=== PATIENT | female | born 1975 | race Caucasian/White ===

== ENCOUNTER 2017-06-25 05:40 | Inpatient (IN) | payer OTHER ==
[2017-06-25] MEDS ORDERED: ELECTROLYTE-148 SOLN 1,000 ML IV ONE (06:15)
[2017-06-25 06:30] VITALS: BMI 33.5
[2017-06-25] MEDS ORDERED: ONDANSETRON 4 MG/2 ML VIAL IVPUSH PRN (07:21)
[2017-06-25] MEDS ORDERED: morphine SULFATE/Preservative Free 0.5 MG/ML (1cc Syringe) EP ONE (07:21)
[2017-06-25] MEDS ORDERED: IBUPROFEN 800 MG/8 ML IJ IVPB PRN ×2 (07:22→08:31)
[2017-06-25] MEDS ORDERED: CITRIC ACID/SODIUM CITRATE 30 ML UNIT-DOSE CUP PO ONE (07:28)
[2017-06-25] MEDS ORDERED: ceFAZolin SODIUM 1 GM VIAL ONE (07:30)
[2017-06-25] MEDS ORDERED: ELECTROLYTE-148 SOLN 1,000 ML IV SCH (07:30)
--- NOTE | 2017-06-25 07:34 | HP ---
Past Medical History - Primary Care Physician PCP:: Adan Henderson - Admission Chief Complaint: 39 weeks, previous c/s , for repeat c/s and btl, AMA History of Present Illness: 41 yo f g 5 [id number] edc by sono 07/01/17 39 weeks with 2 previous c/s request of repeat c/s and BTL , risks discussed , rfailure risk and risk of ectopic discussed , s/p amnio History Source: Patient Limitations to Obtaining History: No Limitations - Past Medical History ...: 5 ...Para: 3 ...Term: 3 ...Induced : 1 ...LMP: 09/30/16 ... Weeks Gestation by Dates: 38.5 ...EDC by Dates: 07/07/17 ...EDC by Sono: 07/01/17 - Past Surgical History Past Surgical History: Yes: Hx Myomectomy: No Hx Transabdominal Cerclage: No - Smoking History Smoking history: Never smoked Have you smoked in the past 12 months: No Aproximately how many cigarettes per day: 3 - Alcohol/Substance Use Hx Alcohol Use: No History of Substance Use: reports: None - Social History History of Recent Travel: No Home Medications - Allergies Allergies/Adverse Reactions: Allergies Allergy/AdvReac Type Severity Reaction Status Date / Time No Known Allergies Allergy Verified 06/25/17 06:55 - Home Medications Home Medications: Ambulatory Orders Ferrous Sulfate [Iron] 1 tab PO DAILY 06/25/17 Vit Calc,Iron,Folic [ Vitamins] 1 tab PO DAILY 06/25/17 Review of Systems - Review of Systems Constitutional: reports: No Symptoms Eyes: reports: No Symptoms HENT: reports: No Symptoms Neck: reports: No Symptoms Respiratory: reports: No Symptoms Gastrointestinal: reports: No Symptoms Genitourinary: reports: No Symptoms Breasts: reports: No Symptoms Reported Musculoskeletal: reports: No Symptoms Integumentary: reports: No Symptoms Neurological: reports: No Symptoms Endocrine: reports: No Symptoms Hematology/Lymphatic: reports: No Symptoms Physical Exam - Maternity Vital Signs: Vital Signs Temperature 97.8 F 06/25/17 06:19 Pulse Rate 84 06/25/17 06:19 Respiratory Rate 16 06/25/17 06:19 Blood Pressure 116/65 06/25/17 06:19 O2 Sat by Pulse Oximetry (%) Constitutional: Yes: Well Nourished, No Distress, Calm Eyes: Yes: WNL, Conjunctiva Clear, EOM Intact HENT: Yes: WNL, Atraumatic, Normocephalic Neck: Yes: WNL, Supple, Trachea Midline Cardiovascular: Yes: WNL, Regular Rate and Rhythm Breast(s): Yes: WNL - Abdominal Exam/OB Fundal Height: 40 Number of Fetuses: Single Presentation: Vertex Contractions: No Intensity: Unaware Monitor Mode: External Heart Rate Location: [facility] Category: I Accelerations: Uniform Decelerations: None - Vaginal Exam/OB Vaginal Bleediing: No Speculum Exam: No Dilatation (cm): closed Effacement (%): 0 Amniotic Membrane Status: Intact Presentation: Vertex/Position Station: -3 - Physical Exam Musculoskeletal: Yes: WNL Extremities: Yes: WNL Edema: Yes Edema: LLE: Trace, RLE: Trace Deep Tendon Reflex Grade: Normal +2 Problem List - Problems (1) 39 weeks gestation of Code(s): Z3A.39 - 39 WEEKS GESTATION OF (2) Previous section complicating Code(s): O34.219 - MATERNAL CARE FOR UNSP TYPE SCAR FROM PREVIOUS DEL (3) Advanced maternal age (AMA) in Code(s): OWG4231 - (4) Sterilization Code(s): Z30.2 - ENCOUNTER FOR STERILIZATION Assessment/Plan admit for repeat c/s and BTL, rba discussed
[2017-06-25] MEDS ORDERED: PHENYLEPHRINE HCL 10 MG/1 ML SINGLE DOSE VIAL ONE (07:59)
[2017-06-25] MEDS ORDERED: MIDAZOLAM HCL 2 MG/2 ML SINGLE DOSE VIAL ONE (08:03)
[2017-06-25] MEDS ORDERED: OXYTOCIN 10 UNITS/ML VIAL ONE (08:06)
[2017-06-25] MEDS ORDERED: METHYLERGONOVINE MALEATE 0.2 MG/1 ML AMP IM PRN (08:31)
[2017-06-25] MEDS ORDERED: BENZOCAINE 28 GM HEMORRHOIDAL OINTMENT PR PRN (08:31)
[2017-06-25] MEDS ORDERED: diphenhydrAMINE HCL 25 MG CAPSULE (FP) PO PRN (08:31)
[2017-06-25] MEDS ORDERED: WITCH HAZEL 50% (TUCKS) 40 PAD/JAR PAD TP PRN (08:31)
[2017-06-25] MEDS ORDERED: BENZOCAINE 20% 57 GM BOTTLE TP PRN (08:31)
[2017-06-25] MEDS ORDERED: oxyCODONE HCL 5 MG TABLET PO PRN (08:31)
[2017-06-25] MEDS ORDERED: DEXTROSE 5%-LACTATED RINGERS 1,000 ML IV SCH (08:45)
[2017-06-25] MEDS ORDERED: OXYTOCIN 20 UNITS in 0.9% NS 20 UNIT/1,000 ML INFUS.BAG IV SCH (08:45)
[2017-06-25] MEDS ORDERED: OXYTOCIN 20 UNITS in 0.9% NS 20 UNIT/1,000 ML INFUS.BAG IV ONE (09:30)
[2017-06-25] MEDS ORDERED: CEFAZOLIN 1 GM/D5W 1 GM/50 ML BAG IVPB SCH ×2 (10:00→18:00)
[2017-06-25] MEDS: ENOXAPARIN NA (PORCINE) 40 MG/0.4 ML DISP.SYRIN SQ SCH (12:53)
--- NOTE | 2017-06-25 16:56 | OP ---
DATE OF OPERATION: 06/25/2017 PREOPERATIVE DIAGNOSIS: 39 weeks, previous section, request repeat section and tubal ligation. POSTOPERATIVE DIAGNOSIS: 39 weeks, previous section, request repeat section and tubal ligation. PROCEDURE: Repeat low segment transverse section and bilateral tubal ligation. SURGEON: Stan Henderson M.D. WORKERS COMPENSATION CLAIMS SPECIALIST: Erich Calhoun ANESTHESIA: Spinal. ANESTHESIOLOGIST: Jae Fabian M.D. ESTIMATED BLOOD LOSS: 500 mL. OPERATION: Patient was taken to operating room with adequate epidural anesthesia. Abdomen and perineum were prepped and draped. Pfannenstiel abdominal skin incision was made over the previous incision. Abdominal wall was cut layer by layer until the peritoneum was exposed and incised. Upon entering the abdominal cavity, the lower uterine segment was identified, and uterovesical fold of the peritoneum was established. The bladder was pushed down. Then with the lower blade of the [place] retractor in the pelvis, a low transverse uterine incision was made. The incision extended laterally with bandage scissors. Amniotic sac was entered. Clear fluid. Head delivered. Nasopharynx was suctioned. Cord around the neck x1. A live baby was delivered without any difficulty. Placenta was delivered manually. Uterine cavity was cleared of all remaining tissue. Uterine incision was closed in 2 layers, the 1st layer with 0 Biosyn continuous suture, the 2nd layer with 0 Biosyn imbricating the 1st layer. Bladder flap was closed with 0 Biosyn continuous suture. Both tubes and ovaries were checked and were normal. The right tube was grasped with Brandon clamp. Right tube was doubly tied with 2-0 plain. Portion of tube was removed, and endosalpinx was cauterized. The same procedure repeated for opposite tube. And then all the lap, sponge, and instrument counts were correct. Peritoneum was closed with 0 Biosyn with continuous suture. Muscles were brought together interrupted suture with 0 Biosyn. Fascia was closed with 0 Biosyn continuous sutures. Subcutaneous fat interrupted sutures 0 Biosyn, and the skin was closed with jimbo. The patient tolerated the procedure well and left the OR in good condition. STAN HENDERSON M.D. [id number]
[2017-06-25] MEDS: CEFAZOLIN 1 GM PUSH 1 GM/10 ML DISP.SYRIN IVPUSH SCH (18:12)
[2017-06-26] MEDS: CEFAZOLIN 1 GM PUSH 1 GM/10 ML DISP.SYRIN IVPUSH SCH (01:52)
--- NOTE | 2017-06-26 07:11 | PN ---
Post Progress Note Post Day: 1 Type of Delivery: Repeat C/S Vital Signs: Vital Signs Temperature 97.8 F 06/26/17 06:00 Pulse Rate 68 06/26/17 06:00 Respiratory Rate 18 06/26/17 06:00 Blood Pressure 85/50 06/26/17 06:00 O2 Sat by Pulse Oximetry (%) 99 06/25/17 08:45 Breast Exam: Yes: Soft Uterus: Yes: Fundus Firm Incision: Yes: Dressing dry and intact Abdomen/GI: Yes: Abdomen soft Lochia: Yes: Rubra Lochia, amount: Small Extremities: Yes: Calves non-tender Perineum: Yes: Intact Activity: Ambulating Assessment/Plan ooob reg diet pain control
[2017-06-26 07:54] LABS: BASO % 0.4 % (0-2.0); EOS % 0.5 % (0-4.5); HEMATOCRIT 31.9 % (32.4-45.2); HEMOGLOBIN 10.9 GM/dL (10.7-15.3); MCH 31.2 pg (25.7-33.7); MCHC 34.1 g/dl (32.0-36.0); MEAN CELL VOLUME 91.3 fl (80-96); MEAN PLT VOLUME 7.8 fl (7.5-11.1); MONO % 5.1 % (3.8-10.2); PLATELET COUNT 124 K/MM3 (134-434); RDW 13.6 % (11.6-15.6); WHITE BLOOD COUNT 12.1 K/mm3 (4.0-10.0)
[2017-06-26] MEDS ORDERED: BISACODYL 10 MG SUPP.RECT RC PRN (08:31)
[2017-06-26] MEDS: SIMETHICONE 80 MG TAB.CHEW (FP) PO PRN ×3 (08:42→18:32)
[2017-06-26] MEDS: ACETAMINOPHEN 325 MG TABLET (FP) PO PRN ×2 (08:45→14:47)
[2017-06-26] MEDS: oxyCODONE HCL 5 MG TABLET PO PRN ×3 (08:45→18:32)
[2017-06-26] MEDS: ENOXAPARIN NA (PORCINE) 40 MG/0.4 ML DISP.SYRIN SQ SCH (09:22)
--- NOTE | 2017-06-26 10:26 | PN ---
Progress Note, Physician Chief Complaint: pt day #1 s/p c/s - Current Medication List Current Medications: Active Medications Acetaminophen (Tylenol -) 650 mg PO Q6H PRN PRN Reason: PAIN LEVEL 4 - 6 Last Admin: 06/26/17 08:45 Dose: 650 mg Benzocaine (Americaine 20% [place] -) 1 spray TP PRN PRN PRN Reason: PAIN Benzocaine (Americaine Ointment -) 1 applic IN PRN PRN PRN Reason: PAIN Bisacodyl (Dulcolax Suppository -) 10 mg RC PRN PRN PRN Reason: CONSTIPATION Diphenhydramine HCl (Benadryl Injection -) 25 mg IVPUSH Q4H PRN PRN Reason: Pruritis Last Admin: 06/25/17 10:11 Dose: 25 mg Diphenhydramine HCl (Benadryl -) 25 mg PO Q8H PRN PRN Reason: FOR ITCHING Enoxaparin Sodium (Lovenox -) 40 mg SQ DAILY JENNA Last Admin: 06/26/17 09:22 Dose: 40 mg Parenteral Electrolytes (Plasma-Lyte 148 -) 1,000 mls @ 125 mls/hr IV ASDIR JENNA Dextrose/Lactated Ringer's (D5-Lr -) 1,000 mls @ 125 mls/hr IV ASDIR JENAN Ibuprofen (Caldolor Injection -) 600 mg IVPB Q8H PRN PRN Reason: FEVER Ibuprofen (Motrin -) 600 mg PO Q4H PRN PRN Reason: PAIN Ibuprofen (Caldolor Injection -) 800 mg IVPB Q6H PRN PRN Reason: PAIN Last Admin: 06/26/17 00:17 Dose: 800 mg Methylergonovine Maleate (Methergine Injection -) 0.2 mg IM Q4H PRN PRN Reason: EXCESSIVE BLEEDING Ondansetron HCl (Zofran Injection) 4 mg IVPUSH Q4H PRN PRN Reason: NAUSEA Oxycodone HCl (Roxicodone -) 5 mg PO Q4H PRN PRN Reason: PAIN LEVEL 1-5 Last Admin: 06/26/17 08:45 Dose: 5 mg Oxycodone HCl (Roxicodone -) 10 mg PO Q4H PRN PRN Reason: PAIN LEVEL 6-10 Senna/Docusate Sodium (Pericolace -) 2 tablet PO HS PRN PRN Reason: CONSTIPATION Simethicone (Mylicon -) 80 mg PO Q4H PRN PRN Reason: GAS Last Admin: 06/26/17 08:42 Dose: 80 mg Witch Marizol/Glycerin (Tucks Pads -) 1 pad TP PRN PRN PRN Reason: PAIN - Objective Vital Signs: Vital Signs Temperature 98.4 F 06/26/17 10:00 Pulse Rate 66 06/26/17 10:00 Respiratory Rate 20 06/26/17 10:00 Blood Pressure 91/56 06/26/17 10:00 O2 Sat by Pulse Oximetry (%) 99 06/25/17 08:45 Labs: CBC, BMP 06/26/17 07:20 Assessment/Plan Doing well s/p C/S with duramorph spinal. No back pain, ANDERSON, side effects from duramorph. Continue current care
[2017-06-26] MEDS: IBUPROFEN 600 MG TABLET (FP) PO PRN (18:36)
[2017-06-27] MEDS: SIMETHICONE 80 MG TAB.CHEW (FP) PO PRN ×3 (00:39→14:25)
[2017-06-27] MEDS: oxyCODONE HCL 5 MG TABLET PO PRN ×5 (00:39→21:08)
[2017-06-27] MEDS: ACETAMINOPHEN 325 MG TABLET (FP) PO PRN ×2 (00:39→10:41)
[2017-06-27] MEDS ORDERED: SENNOSIDES/DOCUSATE COMBO (SENNA PLUS) TABLET (UD) PO PRN ×2 (00:44→22:00)
[2017-06-27] MEDS: IBUPROFEN 600 MG TABLET (FP) PO PRN ×3 (02:11→21:08)
--- NOTE | 2017-06-27 09:07 | PN ---
Post Progress Note - Subjective Subjective: Patient feels well. OOB. Ambulating. Tolerating diet. +flatus. Does c/o some gas pain Post Day: 2 Type of Delivery: Repeat C/S Vital Signs: Vital Signs Temperature 97.9 F 06/27/17 08:33 Pulse Rate 81 06/27/17 08:33 Respiratory Rate 20 06/27/17 08:33 Blood Pressure 100/75 06/27/17 08:33 O2 Sat by Pulse Oximetry (%) 99 06/25/17 08:45 Breast Exam: Yes: Soft Uterus: Yes: Fundus Firm Incision: Yes: [place] intact Abdomen/GI: Yes: Abdomen soft, Abdominal Distention, Passing flatus, Tolerating PO Lochia, amount: Small Extremities: Yes: Calves non-tender Activity: Ambulating - Labs Labs: CBC WBC 12.1 K/mm3 (4.0-10.0) H 06/26/17 07:20 RBC 3.50 M/mm3 (3.60-5.2) L 06/26/17 07:20 Hgb 10.9 GM/dL (10.7-15.3) D 06/26/17 07:20 Hct 31.9 % (32.4-45.2) L 06/26/17 07:20 MCV 91.3 fl (80-96) 06/26/17 07:20 MCH 31.2 pg (25.7-33.7) 06/26/17 07:20 MCHC 34.1 g/dl (32.0-36.0) 06/26/17 07:20 RDW 13.6 % (11.6-15.6) 06/26/17 07:20 Plt Count 124 K/MM3 (134-434) L 06/26/17 07:20 MPV 7.8 fl (7.5-11.1) 06/26/17 07:20 Neutrophils % 85.0 % (42.8-82.8) H 06/26/17 07:20 Lymphocytes % 9.0 % (8-40) D 06/26/17 07:20 Monocytes % 5.1 % (3.8-10.2) 06/26/17 07:20 Eosinophils % 0.5 % (0-4.5) 06/26/17 07:20 Basophils % 0.4 % (0-2.0) 06/26/17 07:20 Problem List - Problems (1) delivery delivered Code(s): O82 - ENCOUNTER FOR DELIVERY WITHOUT INDICATION Assessment/Plan Patient POD#2 s/p rpt c/s with btl doing well ambulation encouraged pain management as needed continue routine postop care Dr. Nguyen
[2017-06-27] MEDS: ENOXAPARIN NA (PORCINE) 40 MG/0.4 ML DISP.SYRIN SQ SCH (09:38)
[2017-06-28] MEDS: ACETAMINOPHEN 325 MG TABLET (FP) PO PRN ×2 (02:47→09:42)
[2017-06-28] MEDS: oxyCODONE HCL 5 MG TABLET PO PRN (02:48)
[2017-06-28 08:18] LABS: BASO % 0.5 % (0-2.0); HEMATOCRIT 30.9 % (32.4-45.2); HEMOGLOBIN 10.5 GM/dL (10.7-15.3); LYMPH % 14.1 % (8-40); MCH 30.7 pg (25.7-33.7); MCHC 33.9 g/dl (32.0-36.0); MEAN CELL VOLUME 90.5 fl (80-96); MEAN PLT VOLUME 7.7 fl (7.5-11.1); MONO % 5.3 % (3.8-10.2); NEUT % 79.1 % (42.8-82.8); PLATELET COUNT 143 K/MM3 (134-434); RBC 3.41 M/mm3 (3.60-5.2); RDW 13.9 % (11.6-15.6); WHITE BLOOD COUNT 8.2 K/mm3 (4.0-10.0)
[2017-06-28] MEDS: IBUPROFEN 600 MG TABLET (FP) PO PRN (09:41)
[2017-06-28] MEDS: SIMETHICONE 80 MG TAB.CHEW (FP) PO PRN (09:42)
[2017-06-28] MEDS: ENOXAPARIN NA (PORCINE) 40 MG/0.4 ML DISP.SYRIN SQ SCH (09:43)
--- NOTE | 2017-06-28 09:59 | PN ---
Post Progress Note Post Day: 3 Type of Delivery: Repeat C/S Vital Signs: Vital Signs Temperature 98.0 F 06/27/17 21:39 Pulse Rate 89 06/27/17 21:39 Respiratory Rate 20 06/27/17 21:39 Blood Pressure 113/72 06/27/17 21:39 O2 Sat by Pulse Oximetry (%) 99 06/25/17 08:45 Breast Exam: Yes: Soft Uterus: Yes: Fundus Firm Abdomen/GI: Yes: Abdomen soft Lochia: Yes: Rubra Lochia, amount: Small Extremities: Yes: Calves non-tender Perineum: Yes: Intact Activity: Ambulating - Labs Labs: CBC WBC 8.2 K/mm3 (4.0-10.0) D 06/28/17 07:50 RBC 3.41 M/mm3 (3.60-5.2) L 06/28/17 07:50 Hgb 10.5 GM/dL (10.7-15.3) L 06/28/17 07:50 Hct 30.9 % (32.4-45.2) L 06/28/17 07:50 MCV 90.5 fl (80-96) 06/28/17 07:50 MCH 30.7 pg (25.7-33.7) 06/28/17 07:50 MCHC 33.9 g/dl (32.0-36.0) 06/28/17 07:50 RDW 13.9 % (11.6-15.6) 06/28/17 07:50 Plt Count 143 K/MM3 (134-434) 06/28/17 07:50 MPV 7.7 fl (7.5-11.1) 06/28/17 07:50 Neutrophils % 79.1 % (42.8-82.8) 06/28/17 07:50 Lymphocytes % 14.1 % (8-40) D 06/28/17 07:50 Monocytes % 5.3 % (3.8-10.2) 06/28/17 07:50 Eosinophils % 1.0 % (0-4.5) D 06/28/17 07:50 Basophils % 0.5 % (0-2.0) 06/28/17 07:50 Assessment/Plan as above reg diet oob
[2017-06-28 10:21] VITALS: BP 107/70; PULSE 85; TEMP 98.4
--- NOTE | 2017-06-30 14:58 | PATH ---
Surgical Pathology Report Patient Name: CHANTAL BROWER [facility]. Rec. #: [id number] /Age/Gender: 1975 (Age: 41) / F Account: [id number] Location: [facility] OBS/PRODUCT SAFETY ASSOCIATE Taken: 06/25/2017 Received: 06/26/2017 Reported: 06/30/2017 Physicians: Adan Henderson M.D. Specimen(s) Received A: PLACENTA B: LEFT FALLOPIAN TUBE C: RIGHT FALLOPIAN TUBE Clinical History , VTOPx1, '95, ', ', advanced maternal age, term gestation Final Diagnosis A. PLACENTA, SECTION: 415 g THIRD TRIMESTER PLACENTA WITH TRIVASCULAR UMBILICAL CORD AND UNREMARKABLE PLACENTAL MEMBRANES. B. FALLOPIAN TUBE, LEFT, PARTIAL EXCISION: FULL LUMINAL PORTION OF UNREMARKABLE FALLOPIAN TUBE. C. FALLOPIAN TUBE, RIGHT, PARTIAL EXCISION: FULL LUMINAL PORTION OF UNREMARKABLE FALLOPIAN TUBE. Electronically Signed Sanjana Diana M.D. Gross Description A. The specimen is received fresh labeled placenta and is a 415 gram, 16.5 x 15.0 x 2.5 cm. placenta with attached membranes and umbilical cord. The attached membranes are matamoros, translucent with focal opacities and insert marginally. The umbilical cord measures 33 cm. in length and averages 1.1 cm. in diameter. The cord inserts eccentrically, 4.5 cm. to the nearest margin. No true knots or strictures are identified. Cut surface of the umbilical cord reveals 3 vessels. The surface is rodriguez-blue with minimal fibrin deposition and appropriate caliber vessels. The maternal surface is red-brown with focal defects. Sectioning reveals red-brown, spongy parenchyma. No lesions are identified. Nurse Gynecology sections are submitted in three cassettes as follows: 1- membrane rolls and umbilical cord; 2-3- full thickness sections of placenta. B. Received in formalin labeled "left tube," is a 0.9 cm in length portion of fallopian tube. No fimbria are present. The outer surface is matamoros rodriguez and smooth. Sectioning reveals an unremarkable lumen. Nurse Gynecology sections are submitted in one cassette. C. Received in formalin labeled "right tube," is a 1.5 cm in length portion of fallopian tube. No fimbria are present. The outer surface is matamoros rodriguez and smooth. Sectioning reveals an unremarkable lumen. Nurse Gynecology sections are submitted in one cassette. 06/29/2017 [facility]06/29/2017
== END 2017-06-28 13:20 | disposition home or self-care (01) | DRG 540 ==
LOC: JLDR 05:40 → J3W 09:54
PROVIDERS: ADMIT Obstetrics & Gynecology; ATTEND Obstetrics & Gynecology
PROC: 10D00Z1 Extraction of Products of Conception, Low, Open Approach (ICD-10-PCS; principal; 2017-06-25)
PROC: 0UB70ZZ Excision of Bilateral Fallopian Tubes, Open Approach (ICD-10-PCS; 2017-06-25)
DX: O34.211 Maternal care for low transverse scar from previous cesarean delivery (principal); N85.8 Other specified noninflammatory disorders of uterus; Z3A.39 39 weeks gestation of pregnancy; Z30.2 Encounter for sterilization; Z37.0 Single live birth
CPT/HCPCS: 36415; 85025; 88302-TC; 88307-TC

== ENCOUNTER 2018-09-12 21:45 | Emergency (ER) | payer OTHER ==
--- NOTE | 2018-09-12 21:52 | PDOC ---
Rapid Medical Evaluation Time Seen by Provider: 09/12/18 21:51 Medical Evaluation: Allergies Allergy/AdvReac Type Severity Reaction Status Date / Time No Known Allergies Allergy Verified 06/25/17 06:55 09/12/18 21:51 I have performed a brief in-person evaluation of this patient. The patient presents with a chief complaint of:L flank pain w/ nausea, chills today, had urinary freq yesterday. Seen in UC today and did a UA which did not show s/o infection. H/o recurrent pyelo, s/p tubal ligation remotely Pertinent physical exam findings:Stable and well allyssa I have ordered the following:labs The patient will proceed to the ED for further evaluation. 09/12/18 21:53 Discharge Disposition - Diagnosis Flank pain - Referrals Referrals: Cyrus Manzo MD, MD [Primary Care Provider] - - Patient Instructions - Post Discharge Activity
[2018-09-12 21:53] VITALS: BP 129/80; PULSE 67; TEMP 97.8; BMI 28.3
--- NOTE | 2018-09-12 23:09 | PDOC ---
History of Present Illness - General Chief Complaint: Pain, Acute Stated Complaint: BACK SIDE PAIN Time Seen by Provider: 09/12/18 21:51 - History of Present Illness Initial Comments: The pt is a 42F w/ a history of recurrent pyelonephritis, previous C/S, and BTL who presents for evaluation of 2 days of L flank/suprapubic abdominal pain. She reports associated nausea and chills. Denies hematuria, dysuria, diarrhea, blood in her stool, or vomiting. The pt was seen at an urgent care prior to arrival where reportedly her UA was wnl. She has not tried taking anything for the pain and does not want anything for the pain at this time. PCP: Dr. Cyrus Drew 09/12/18 23:05 Past History - Past Medical History Allergies/Adverse Reactions: Allergies Allergy/AdvReac Type Severity Reaction Status Date / Time No Known Allergies Allergy Verified 09/12/18 21:53 Home Medications: Ambulatory Orders Ferrous Sulfate [Iron] 1 tab PO DAILY 06/25/17 Vit Calc,Iron,Folic [ Vitamins] 1 tab PO DAILY 06/25/17 Ibuprofen [Motrin -] 600 mg PO Q4H PRN #60 tablet 06/28/17 Anemia: Yes Asthma: No Cancer: No Cardiac Disorders: No COPD: No Diabetes: No HTN: No Seizures: No Thyroid Disease: No - Surgical History Abdominal Surgery: Yes (TUBAL LIGATION) - Suicide/Smoking/Psychosocial Hx Smoking Status: No Smoking History: Never smoked Have you smoked in the past 12 months: No Number of Cigarettes Smoked Daily: 3 Hx Alcohol Use: No Drug/Substance Use Hx: No Substance Use Type: None Hx Substance Use Treatment: No Review of Systems - Review of Systems Able to Perform ROS?: Yes Comments:: GENERAL/CONSTITUTIONAL: No fever. No weakness HEAD, EYES, EARS, NOSE AND THROAT: No change in vision. No ear pain or discharge. No sore throat CARDIOVASCULAR: No chest pain or shortness of breath RESPIRATORY: Denies cough, hemoptysis GASTROINTESTINAL: No vomiting, diarrhea or constipation GENITOURINARY: No dysuria, frequency, or change in urination MUSCULOSKELETAL: No joint or muscle swelling or pain. No neck pain SKIN: No rash NEUROLOGIC: No headache, vertigo, loss of consciousness, or change in strength/ sensation ENDOCRINE: No increased thirst. No abnormal weight change HEMATOLOGIC/LYMPHATIC: No anemia, easy bleeding, or history of blood clots ALLERGIC/IMMUNOLOGIC: No hives or skin allergy 09/12/18 23:27 Is the patient limited Citizen Of [place] proficient: No *Physical Exam - Vital Signs Last Vital Signs Temp Pulse Resp BP Pulse Ox 97.8 F 67 18 129/80 98 09/12/18 21:50 09/12/18 21:50 09/12/18 21:50 09/12/18 21:50 09/12/18 21:50 - Physical Exam Comments: GENERAL: Awake, alert, and oriented to person/place/time, in no acute distress HEAD: No signs of trauma, normocephalic, atraumatic EYES: PERRLA, EOMI, sclera anicteric, conjunctiva clear ENT: Hearing grossly normal, nares patent, oropharynx clear without exudates. No uvular deviation. Moist mucosa LUNGS: No distress, speaks full sentences, clear to auscultation bilaterally HEART: Regular rate and rhythm, normal S1 and S2, no murmurs appreciated, peripheral pulses normal and equal bilaterally ABDOMEN: Soft, suprapubic TTP w/o rebound or guarding; normoactive bowel sounds. No CVA TTP EXTREMITIES: Normal inspection, Normal range of motion, no edema. No clubbing or cyanosis NEUROLOGICAL: Cranial nerves II through XII grossly intact. Normal speech, normal gait, no focal sensorimotor deficits SKIN: Warm, Dry 09/12/18 23:28 ED Treatment Course - LABORATORY CBC & Chemistry Diagram: 09/13/18 00:05 09/13/18 00:05 - RADIOLOGY Radiology Studies Ordered: Category Date Time Status SPIRAL- RENAL-STONE CT [CT] Stat CT Scan 09/12/18 23:05 Ordered Medical Decision Making - Medical Decision Making The pt is a 42F w/ a history of recurrent pyelonephritis, C/S, and BTL who presents for evaluation of 2 days of left flank pain ED Course Labs sent CT spiral 09/12/18 23:29 Preg neg 09/13/18 00:41 No leukocytosis No anemia 09/13/18 00:44 UA w/o evidence of UTI, no hematuria Lytes wnl No HUSSEIN LFTs wnl CT spiral pending 09/13/18 00:56 *DC/Admit/Observation/Transfer Diagnosis at time of Disposition: Flank pain, Nephrolithiasis - Discharge Dispostion Disposition: HOME Condition at time of disposition: Stable Decision to Admit order: No - Referrals Referrals: Cyrus Manzo MD, MD [Primary Care Provider] - Jossue Sotomayor MD [Staff Physician] - - Patient Instructions Printed Discharge Instructions: Kidney Stones -- Adult Additional Instructions: You were seen in the Emergency Department for evaluation of flank pain. Your labs were unremarkable and your imaging was notable for a non-obstructing kidney stone. You may take ibuprofen up to 600mg every 6 hours for pain. Review the handout provided at discharge. Follow up with your primary care provider and the referral given within a week. Return to the Emergency Department if you develop fevers/chills, worsening pain, vomiting, pain with urination, blood in your urine, or any new/concerning symptoms. - Post Discharge Activity Forms/Work/School Notes: Back to Work
[2018-09-13 00:31] LABS: BASO % 0.4 % (0-2.0); EOS % 1.2 % (0-4.5); HEMATOCRIT 39.9 % (32.4-45.2); HEMOGLOBIN 13.9 GM/dL (10.7-15.3); LYMPH % 24.2 % (8-40); MCHC 34.9 g/dl (32.0-36.0); MEAN PLT VOLUME 8.3 fl (7.5-11.1); MONO % 4.5 % (3.8-10.2); NEUT % 69.7 % (42.8-82.8); PLATELET COUNT 215 K/MM3 (134-434); RBC 4.49 M/mm3 (3.60-5.2); RDW 13.5 % (11.6-15.6); WHITE BLOOD COUNT 9.1 K/mm3 (4.0-10.0)
[2018-09-13 00:35] LABS: URINE APPEARANCE CLEAR; URINE BILIRUBIN NEGATIVE (NEGATIVE); URINE COLOR YELLOW; URINE GLUCOSE (UA) NEGATIVE (NEGATIVE); URINE KETONE NEGATIVE (NEGATIVE); URINE LEUK ESTERASE NEGATIVE (NEGATIVE); URINE NITRITE NEGATIVE (NEGATIVE); URINE PROTEIN NEGATIVE (NEGATIVE); URINE UROBILINOGEN 0.2 mg/dL (0.2-1.0)
[2018-09-13 00:38] LABS: HCG,QUALITATIVE URINE Negative
[2018-09-13 00:52] LABS: ALBUMIN 3.8 g/dl (3.4-5.0); ALK PHOS 97 U/L (45-117); ANION GAP 9 MMOL/L (8-16); BILIRUBIN,TOTAL 0.4 mg/dL (0.2-1); BLOOD UREA NITROGEN 13 mg/dL (7-18); CALCIUM 9.2 mg/dL (8.5-10.1); CHLORIDE 102 mmol/L (98-107); CO2 25 mmol/L (21-32); CREATININE 0.7 mg/dL (0.55-1.3); GLUCOSE,RANDOM 109 mg/dL (74-106); POTASSIUM 3.7 mmol/L (3.5-5.1); SGOT/AST 28 U/L (15-37); SGPT/ALT 61 U/L (13-61); SODIUM 135 mmol/L (136-145); TOT PROT 7.6 g/dl (6.4-8.2)
== END 2018-09-13 03:30 | disposition home or self-care (01) ==
LOC: JER 21:45
DX: N20.0 Calculus of kidney (principal); D64.9 Anemia, unspecified
CPT/HCPCS: 36415; 74176-TC; 80053; 81003; 84703; 85025; 87086; 99282-25